=== PATIENT | male | born 1965 | race Hispanic/Latino ===

== ENCOUNTER 2021-09-03 13:18 | Emergency (ER) | payer SELFPAY ==
[2021-09-03 13:49] LABS: Hematocrit 41.6 % (39.6-49.0); Lymphocytes % 8.3 % (15.3-44.8); MPV 9.2 fL (7.6-11.3); RBC Red Blood Cell Count 4.59 M/uL (4.33-5.43)
--- NOTE | 2021-09-03 14:07 | RAD REPORT ---
EXAM DESCRIPTION: CT - Stone Protocol - 09/03/2021 1:46 pm CLINICAL HISTORY: Abdominal pain./back pain COMPARISON: None. TECHNIQUE: Computed axial tomography of the abdomen pelvis was obtained without oral or IV contrast. Lack of IV and oral contrast limits evaluation of solid organs, bowel, and vessels. Coronal reformat morelia images were obtained and reviewed. All CT scans are performed using dose optimization technique as appropriate and may include automated exposure control or mA/KV adjustment according to patient size. FINDINGS: A renal calculus is not seen. An ureteral calculus is not noted. A bladder calculus is not present. The liver, spleen, pancreas and adrenals appear grossly normal There is no evidence of diverticulitis. The appendix appears normal No adnexal mass Minimally displaced fracture right transverse process of L3 IMPRESSION: Negative for a genitourinary calculus Minimally displaced fracture right transverse process of L3
[2021-09-03 14:08] LABS: ALT/SGPT 29 U/L (12-78); AST/SGOT 22 U/L (15-37); Albumin 3.6 g/dL (3.4-5.0); Alkaline Phosphatase 120 U/L (45-117); BUN Blood Urea Nitrogen 16 mg/dL (7-18); Bicarbonate 24 mmol/L (21-32); Bilirubin Total 0.3 mg/dL (0.2-1.0); Glucose Level 151 mg/dL (74-106); Lipase 92 U/L (73-393); Potassium 3.7 mmol/L (3.5-5.1); Sodium Level 138 mmol/L (136-145)
[2021-09-03 14:43] LABS: Platelet Estimate ADEQ; White Blood Cell Scan OK (OK)
[2021-09-03 14:44] LABS: Blood Morphology Comment NOT SEEN (NOT SEEN)
[2021-09-03] MEDS ORDERED: KETOROLAC 30 MG/ML INJ ONE (15:26)
[2021-09-03] MEDS ORDERED: HYDROMORPHONE HCL 0.5 MG/0.5 ML INJ ONE (15:26)
[2021-09-03] MEDS ORDERED: ONDANSETRON 4 MG/2 ML VIAL ONE (15:26)
--- NOTE | 2021-09-03 17:08 | ER ---
Nurse's Notes [facility] Name: Mary Lou Diane Age: 55 yrs Sex: Male : 1965 Arrival Date: 09/03/2021 Time: 13:25 Bed 28 Private MD: Diagnosis: L3 transverse process fracture Presentation: 09/03 13:25 Chief complaint: EMS states: Pt was stepping out of her RV and slipped in mud landing ss7 on her buttock. Pt is c/o right hip pain. Unable to ambulate or bear weight to right hip. 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 Coronavirus screen: Vaccine status: Patient reports receiving the 2nd dose of the covid vaccine. Ebola Screen: No symptoms or risks identified at this time. Initial Sepsis Screen: Does the patient meet any 2 criteria? No. Patient's initial sepsis screen is negative. Does the patient have a suspected source of infection? No. Patient's initial sepsis screen is negative. Risk Assessment: Do you want to hurt yourself or someone else? Patient reports no desire to harm self or others. Onset of symptoms was September 03, 2021. 13:25 Method Of Arrival: EMS: [facility] ss7 13:25 Acuity: HANNAH 3 ss7 Triage Assessment: 13:28 General: Appears uncomfortable, Behavior is calm, cooperative, appropriate for age. ss7 Pain: Complains of pain in pelvis Pain does not radiate. EENT: No deficits noted. Neuro: Level of Consciousness is awake, alert, obeys commands, Oriented to person, place, time, situation, Gait is. Cardiovascular: Heart tones S1 S2. Respiratory: Breath sounds are clear bilaterally. GI: No deficits noted. : No deficits noted. Derm: No deficits noted. Musculoskeletal: Tenderness is absent. present in pelvis Reports pain in pelvis. Historical: - Allergies: 13:28 No Known Allergies; ss7 - Home Meds: 13: None [Active]; ss7 - PMHx: 13:28 None; ss7 - PSHx: 13:28 section; cardiac stents; ss7 - Immunization history:: Client reports receiving the 2nd dose of the Covid vaccine. - Social history:: Smoking status: Patient denies any tobacco usage or history of. Screenin:27 Abuse screen: Denies threats or abuse. Nutritional screening: No deficits noted. 7 Tuberculosis screening: No symptoms or risk factors identified. Fall Risk Fall in past 12 months (25 points). IV access (20 points). Gait- Impaired (20 pts.). Assessment: 15:32 Reassessment: see triage. [facility] 15:32 Reassessment: Attempt to ambulate patient unsuccessful. Pt able to sit up and stand but ss7 unable to bear weight to the RLE. . Vital Signs: 13:25 BP 130 / 82; Pulse 78; Resp 18; Pulse Ox 95% ; Weight 74.84 kg; Height 5 ft. 5 in. ss7 (165.10 cm); Pain 4/10; 15:30 BP 120 / 86; Pulse 80; Resp 18; Pulse Ox 95% ; ss7 17:00 BP 121 / 82; Pulse 64; Resp 18; Pulse Ox 96% on R/A; 7 13:25 Body Mass Index 27.46 (74.84 kg, 165.10 cm) 7 ED Course: 13:25 Patient arrived in ED. [facility] 13:25 Timo Vera PA is PHCP. [facility] 13:25 Gonsalo Julio MD is Attending Physician. [facility] 13:27 Triage completed. 7 13:27 Patient has correct armband on for positive identification. Bed in low position. Call 7 light in reach. Side rails up X2. Warm blanket given. 13:27 No provider procedures requiring assistance completed. Maintain EMS IV. Dressing ss7 intact. Good blood return noted. Site clean \T\ dry. Gauge \T\ site: 20G left wrist. 13:39 Senait Hughes RN is Primary Nurse. 7 13:39 CBC with Diff Sent. ss7 13:39 CMP Sent. ss7 13:39 Lipase Sent. 7 13:46 CT Stone Protocol In Process Unspecified. EDMS 17:12 IV discontinued, intact. 7 17:23 Arm band placed on. 7 Administered Medications: 15:31 Drug: Dilaudid (HYDROmorphone) 0.5 mg Route: IVP; Site: left wrist; 7 17:13 Follow up: Response: Pain is decreased 7 15:31 Drug: Zofran (Ondansetron) 4 mg Route: IVP; Site: left wrist; ss7 17:12 Follow up: Response: Pain is decreased ss7 15:31 Drug: Ketorolac 30 mg Route: IVP; Site: left wrist; ss7 17:12 Follow up: Response: Pain is decreased ss7 Outcome: 17:07 Discharge ordered by . dewayne 17:12 Discharged to home ambulatory. ss7 17:12 Condition: improved 17:12 Discharge instructions given to patient, Instructed on discharge instructions, follow up and referral plans. Demonstrated understanding of instructions, follow-up care, medications. 17:23 Patient left the ED. ss7 Signatures: Dispatcher [employer] EDMS Timo Vera PA PA jmm Smith, Shana RN RN ss7
--- NOTE | 2021-09-03 17:08 | EDPHYS ---
Physician Documentation [facility] Name: Mary Lou Diane Age: 55 yrs Sex: Male : 1965 Arrival Date: 09/03/2021 Time: 13:25 Bed 28 Private MD: ED Physician Gonsalo Julio HPI: 09/03 13:26 This 55 yrs old Male presents to ER via EMS with complaints of Hip Injury. jmm 13:26 Details of fall: The patient fell from a height, down approximately 3 stairs. Onset: jmm The symptoms/episode began/occurred acutely. This is a 55-year-old female no chronic medical condition presents emerged department after falling and landing on her buttocks while stepping down from an RV. Denies hitting her head. Complains of pain which radiates to the right buttock down the right leg. Denies hitting her head. Denies chest pain, shortness of breath, abdominal pain, vomiting.. Historical: - Allergies: 13:28 No Known Allergies; ss7 - Home Meds: 13:28 None [Active]; ss7 - PMHx: 13:28 None; ss7 - PSHx: 13:28 section; cardiac stents; ss7 - Immunization history:: Client reports receiving the 2nd dose of the Covid vaccine. - Social history:: Smoking status: Patient denies any tobacco usage or history of. ROS: 13:26 Constitutional: Negative for fever, chills, and weight loss, Cardiovascular: Negative jmm for chest pain, palpitations, and edema, Respiratory: Negative for shortness of breath, cough, wheezing, and pleuritic chest pain, Abdomen/GI: Negative for abdominal pain, nausea, vomiting, diarrhea, and constipation. 13:26 Back: Positive for pain with movement. 13:26 All other systems are negative. Exam: 13:26 Head/Face: atraumatic. Eyes: EOMI, no conjunctival erythema appreciated ENT: Moist jmm Mucus Membranes Neck: Trachea midline, Supple Chest/axilla: Normal chest wall appearance and motion. Cardiovascular: Regular rate and rhythm. No edema appreciated Respiratory: Normal respirations, no respiratory distress appreciated Abdomen/GI: Non distended, soft 13:26 Skin: General appearance color normal MS/ Extremity: Moves all extremities, no obvious deformities appreciated, no edema noted to the lower extremities Neuro: Awake and alert Psych: Behavior is normal, Mood is normal, Patient is cooperative and pleasant 13:26 Constitutional: The patient appears alert, awake, anxious. 13:26 Back: pain, that is mild, of the lumbar area. 13:26 Musculoskeletal/extremity: ROM: intact in all extremities. Vital Signs: 13:25 BP 130 / 82; Pulse 78; Resp 18; Pulse Ox 95% ; Weight 74.84 kg; Height 5 ft. 5 in. ss7 (165.10 cm); Pain 4/10; 15:30 BP 120 / 86; Pulse 80; Resp 18; Pulse Ox 95% ; ss7 17:00 BP 121 / 82; Pulse 64; Resp 18; Pulse Ox 96% on R/A; ss7 13:25 Body Mass Index 27.46 (74.84 kg, 165.10 cm) ss7 MDM: 13:26 Patient medically screened. [facility] 17:06 Data reviewed: vital signs, nurses notes. [facility] 17:06 Counseling: I had a detailed discussion with the patient and/or guardian regarding: the [facility] historical points, exam findings, and any diagnostic results supporting the discharge/admit diagnosis, radiology results, the need for outpatient follow up, to return to the emergency department if symptoms worsen or persist or if there are any questions or concerns that arise at home. ED course: After medication. Patient states feeling much better. Was able to ambulate without difficulty. Patient advised to follow-up with pain management or spine surgeon for further evaluation otherwise given strict return precautions. Patient understood agrees plan of care.. 09/03 13:28 Order name: CBC with Diff; Complete Time: 14:45 [facility] 09/03 13:28 Order name: CMP; Complete Time: 14:09 [facility] 09/03 13:28 Order name: Lipase; Complete Time: 14:09 [facility] 09/03 13:28 Order name: CT Stone Protocol; Complete Time: 14:09 [facility] 09/03 14:44 Order name: CBC Smear Scan; Complete Time: 14:45 [facility] 09/03 13:28 Order name: IV Saline Lock; Complete Time: 13:39 [facility] 09/03 13:28 Order name: Labs collected and sent; Complete Time: 13:39 [facility] 09/03 14:41 Order name: Misc. Order: ambulate patient; Complete Time: 15:32 [facility] Administered Medications: 15:31 Drug: Dilaudid (HYDROmorphone) 0.5 mg Route: IVP; Site: left wrist; ss7 17:13 Follow up: Response: Pain is decreased ss7 15:31 Drug: Zofran (Ondansetron) 4 mg Route: IVP; Site: left wrist; ss7 17:12 Follow up: Response: Pain is decreased ss7 15:31 Drug: Ketorolac 30 mg Route: IVP; Site: left wrist; ss7 17:12 Follow up: Response: Pain is decreased ss7 Disposition: 18:36 Co-signature as Attending Physician, Gonsalo Julio MD. rn Disposition Summary: 09/03/21 17:07 Discharge Ordered Location: Home [facility] Condition: Stable [facility] Diagnosis - L3 transverse process fracture [facility] Followup: [facility] - With: Private Physician - When: 2 - 3 days - Reason: Recheck today's complaints, Continuance of care, Re-evaluation by your physician Discharge Instructions: - Discharge Summary Sheet [facility] - Transverse Process Fracture [facility] Forms: - Medication Reconciliation Form [facility] - Thank You Letter [facility] - Antibiotic Education [facility] - Prescription Opioid Use [facility] Prescriptions: - Ibuprofen 800 mg Oral Tablet - take 1 tablet by ORAL route every 8 hours As needed take with food; 30 tablet; [facility] Refills: 0, Product Selection Permitted - Zanaflex 4 mg Oral Tablet - take 1 tablet by ORAL route every 8 hours As needed; 20 tablet; Refills: 0, [facility] Product Selection Permitted - Tylenol-Codeine #3 300 mg-30 mg Oral - take 1 tablet by ORAL route every 4-6 hours; 20 tablet; Refills: 0, Product [facility] Selection Permitted Signatures: Dispatcher [employer] EDTimo Purcell PA PA jmm Nieto, Roman, MD MD rn Smith, Shana, RN RN ss7
[2021-09-03 18:18] VITALS: BP 121/82; O2SAT 96
== END 2021-09-03 17:23 | disposition home or self-care (01) ==
LOC: ER 13:18
DX: S32.039A Unspecified fracture of third lumbar vertebra, initial encounter for closed fracture (principal); W10.8XXA Fall (on) (from) other stairs and steps, initial encounter; Z95.818 Presence of other cardiac implants and grafts
CPT/HCPCS: 36415; 74176; 76377; 80053; 83690; 85025; 96374; 96375; 99284; J1170; J2405